=== PATIENT | male | born 1960 ===

== ENCOUNTER 2021-08-16 07:34 | Inpatient (IN) ==
[2021-08-16] MEDS ORDERED: Aspirin 81 MG TAB.CHEW PO ONE (07:45)
[2021-08-16] MEDS ORDERED: Nitroglycerin 0.4 MG TAB.SUBL SL PRN (07:49)
[2021-08-16] MEDS ORDERED: *HR* Midazolam HCl 2 MG/2 ML VIAL ONE (07:49)
[2021-08-16] MEDS ORDERED: *HR* Heparin 5,000 UNIT/ML VIAL IVP PRN ×2 (07:50)
[2021-08-16] MEDS ORDERED: *HR* FentaNYL (PF) 100 MCG/2 ML VIAL ONE (07:50)
[2021-08-16] MEDS ORDERED: Heparin 1,000 UNITS/500 mL 500 ML ONE ×2 (07:50→08:31)
[2021-08-16] MEDS ORDERED: *HR* Ticagrelor 90 MG TABLET PO ONE (07:50)
[2021-08-16] MEDS ORDERED: ISOVUE-370 200 ML INFUS..BTL ONE ×2 (07:50→08:28)
[2021-08-16] MEDS ORDERED: *HR* Heparin 10,000 UNIT/10 ML VIAL ONE ×2 (07:50→08:20)
[2021-08-16] MEDS ORDERED: Nitroglycerin 1,000 MCG/5 ML VIAL IV ONE (07:50)
[2021-08-16] MEDS ORDERED: *HR* Heparin 5,000 UNIT/ML VIAL IVP ONE (07:50)
[2021-08-16] MEDS ORDERED: 0.9 % Sodium Chloride 2,000 ML ONE (07:50)
[2021-08-16] MEDS ORDERED: Heparin 25,000UNIT/250ML 1/2NS 25,000 UNIT/250 ML IV.SOLN IVC SCH (08:00)
[2021-08-16] MEDS ORDERED: *HR* Atropine Sulfate 1 MG/10 ML SYRINGE ONE (08:05)
[2021-08-16 08:22] LABS: Hematocrit 45.2 % (37.5-50.1); Mean Corpuscular HGB Conc 33.2 g/dL (31.6-35.5); Mean Corpuscular Hemoglobin 30.1 pg (28.0-33.3); Mean Corpuscular Volume 90.8 fL (83.0-100.0); Mean Platelet Volume 10.4 fL (9.4-12.4); Platelet Count 277 K/mcL (140-400); Red Blood Count 4.98 M/mcL (4.19-5.50); Red Cell Distribution Width 12.3 % (11.5-14.5); White Blood Count 8.2 K/mcL (4.3-11.1)
[2021-08-16 08:29] LABS: Heparin anti-factor XA UFH < 0.04 IU/mL (0.30-0.70)
[2021-08-16 08:30] LABS: Prothrombin Time 10.8 Seconds (9.4-12.1)
[2021-08-16 08:38] LABS: Alanine Aminotransferase 31 Units/L (7-52); Albumin 4.4 g/dL (3.5-5.7); Albumin/Globulin Ratio 1.5 (1.1-2.2); Alkaline Phosphatase 52 Units/L (34-104); Aspartate Amino Transferase 18 Units/L (13-39); BUN/Creatinine Ratio 11 (6-26); Bilirubin,Direct 0.1 mg/dL (0.0-0.2); Bilirubin,Indirect 0.5 mg/dL (0.0-1.0); Bilirubin,Total 0.6 mg/dL (0.3-1.0); Blood Urea Nitrogen 12 mg/dL (6-20); Calcium 9.4 mg/dL (8.6-10.3); Carbon Dioxide 27 mEq/L (23-29); Chloride 103 mEq/L (98-107); Glucose 107 mg/dL (70-105); Lipase 13 Units/L (11-82); Osmolality,Calculated 286 (280-300); Potassium 4.1 mEq/L (3.5-5.1); Sodium 138 mEq/L (136-145); Total Protein 7.4 g/dL (6.4-8.9); eGFR For African Americans > 60 (> 60); eGFR For Non-African Americans > 60 (> 60)
[2021-08-16 08:43] LABS: Troponin I 0.07 ng/mL (< 0.04)
[2021-08-16] MEDS ORDERED: carvediloL 6.25 MG TABLET PO STA (09:46)
[2021-08-16] MEDS ORDERED: Perflutren Lipid Microsphere 1.3 ML in 0.9 % Sodium Chloride 8.7 ML IVP PRN (10:08)
[2021-08-16] MEDS: 0.9 % Sodium Chloride 1,000 ML IVC SCH ×2 (11:09→21:27)
[2021-08-16] MEDS ORDERED: 0.9 % Sodium Chloride 1,000 ML ONE (14:06)
[2021-08-16] MEDS ORDERED: hydrALAZINE 25 MG TABLET PO PRN (16:46)
[2021-08-16] MEDS ORDERED: carvediloL 6.25 MG TABLET PO SCH (17:00)
[2021-08-16] MEDS: *HR* Ticagrelor 90 MG TABLET PO SCH (21:27)
[2021-08-17 06:08] LABS: Basophils # 0.1 K/mcL (0.0-0.2); Basophils % 0.5 %; Eosinophils # 0.1 K/mcL (0.0-0.6); Eosinophils % 0.9 %; Hematocrit 41.6 % (37.5-50.1); Hemoglobin 13.8 g/dL (12.9-16.9); Immature Granulocytes % 0.4 % (0-4); Lymphocytes # 1.7 K/mcL (0.6-4.6); Lymphocytes % 16.2 %; Mean Corpuscular HGB Conc 33.2 g/dL (31.6-35.5); Mean Corpuscular Hemoglobin 29.8 pg (28.0-33.3); Mean Corpuscular Volume 89.8 fL (83.0-100.0); Mean Platelet Volume 10.5 fL (9.4-12.4); Monocytes # 1.1 K/mcL (0.0-1.3); Monocytes % 10.1 %; Neutrophils # 7.7 K/mcL (1.6-8.9); Platelet Count 257 K/mcL (140-400); Red Blood Count 4.63 M/mcL (4.19-5.50); Red Cell Distribution Width 12.6 % (11.5-14.5); Segmented Neutrophils % 71.9 %; White Blood Count 10.7 K/mcL (4.3-11.1)
[2021-08-17 06:27] LABS: Chol/HDL Ratio 5.2 (0-4.9)
[2021-08-17 06:28] LABS: Troponin I 27.17 ng/mL (< 0.04)
[2021-08-17] MEDS ORDERED: lisinopriL 5 MG TABLET PO SCH (09:00)
[2021-08-17 09:04] LABS: BUN/Creatinine Ratio 14 (6-26); Blood Urea Nitrogen 13 mg/dL (6-20); Calcium 8.6 mg/dL (8.6-10.3); Carbon Dioxide 22 mEq/L (23-29); Chloride 107 mEq/L (98-107); Glucose 104 mg/dL (70-105); Osmolality,Calculated 286 (280-300); Sodium 138 mEq/L (136-145); eGFR For African Americans > 60 (> 60); eGFR For Non-African Americans > 60 (> 60)
[2021-08-17] MEDS: Aspirin 81 MG TAB.CHEW PO SCH (09:05)
[2021-08-17] MEDS: *HR* Ticagrelor 90 MG TABLET PO SCH ×2 (09:05→22:40)
[2021-08-17] MEDS: carvediloL 6.25 MG TABLET PO SCH ×2 (09:06→17:33)
[2021-08-17] MEDS: 0.9 % Sodium Chloride 1,000 ML IVC SCH (13:55)
[2021-08-18 02:40] LABS: BUN/Creatinine Ratio 16 (6-26); Blood Urea Nitrogen 15 mg/dL (6-20); Calcium 8.8 mg/dL (8.6-10.3); Carbon Dioxide 23 mEq/L (23-29); Chloride 107 mEq/L (98-107); Glucose 111 mg/dL (70-105); Osmolality,Calculated 288 (280-300); Sodium 138 mEq/L (136-145); eGFR For African Americans > 60 (> 60); eGFR For Non-African Americans > 60 (> 60)
[2021-08-18 02:58] LABS: Troponin I 14.07 ng/mL (< 0.04)
[2021-08-18 04:36] VITALS: TEMP 98.6; O2SAT 94
[2021-08-18 06:54] VITALS: BP 151/89; PULSE 73
[2021-08-18] MEDS: *HR* Ticagrelor 90 MG TABLET PO SCH (08:33)
[2021-08-18] MEDS: Aspirin 81 MG TAB.CHEW PO SCH (08:33)
[2021-08-18] MEDS: carvediloL 6.25 MG TABLET PO SCH (08:33)
[2021-08-18] MEDS ORDERED: lisinopriL 10 MG TABLET PO SCH (09:00)
== END 2021-08-18 14:30 | disposition home or self-care (01) | DRG 247 ==
LOC: EMEROOARM 07:34 → 2NNU 08:05 → 2NENU 17:23
PROVIDERS: ADMIT Internal Medicine Cardiovascular Disease; ATTEND Internal Medicine Cardiovascular Disease